=== PATIENT | female | born 1985 ===

== ENCOUNTER 2016-07-10 10:18 | Emergency (ER) | payer MEDICAID, OTHER ==
[2016-07-10 10:57] VITALS: BP 115/72
--- NOTE | 2016-07-10 12:10 | UC ---
"Skin Complaint HPI - HPI Summary HPI Summary: pt presents with c/o bilateral lower lid erythematous, itchy, tender, burning dry skin X 1 week. Pt denies injury, or contact with caustic substance to skin. - History of Current Complaint Chief Complaint: UCRespiratory Time Seen by Provider: 07/10/16 11:51 Stated Complaint: LOWER EYELID REDNESS Hx Obtained From: Patient Hx Last Menstrual Period: 06/22/16 ?: No Onset/Duration: Gradual Onset, Lasting Days - 7 Skin Exposure Onset/Duration: Days Ago - 7 Timing: Constant Onset Severity: Mild Location: Discrete - bilateral lower lids. Character: Swelling, Pruritus, Redness, Painful Aggravating: Touch Alleviating: Nothing Associated Signs & Symptoms: Positive: Tenderness - Allergy/Home Medications Allergies/Adverse Reactions: Allergies Allergy/AdvReac Type Severity Reaction Status Date / Time No Known Allergies Allergy Verified 07/10/16 10:49 Home Medications: Home Medications Cyclobenzaprine TAB* [Flexeril 10 MG TAB*] 10 mg PO Q4H PRN 07/10/16 [History Confirmed 07/10/16] PARoxetine HCL TAB* [Paxil TAB*] 40 mg PO DAILY 07/10/16 [History Confirmed 04/23] Review of Systems Constitutional: Negative Skin: Other - erythematous, tender dry, itchy smal patch bialteral lower eyelids Eyes: Negative ENT: Negative Respiratory: Negative Cardiovascular: Negative Gastrointestinal: Negative Genitourinary: Negative Motor: Negative Neurovascular: Negative Musculoskeletal: Negative Neurological: Negative Psychological: Negative All Other Systems Reviewed And Are Negative: Yes PMH/Surg Hx/FS Hx/Imm Hx Previously Healthy: Yes - Surgical History Surgical History: Yes Surgery Procedure, Year, and Place: rt knee surgery, cholecystectomy. tubal ligation - Family History Known Family History: Positive: Other - denies FMH of rash - Social History Alcohol Use: None Substance Use Type: None Smoking Status (MU): Never Smoked Tobacco Physical Exam Triage Information Reviewed: Yes Appearance: Well-Appearing Vital Signs: Initial Vital Signs Temp 98.7 F 07/10/16 10:53 Pulse 77 07/10/16 10:53 Resp 16 07/10/16 10:53 BP 115/72 07/10/16 10:53 Pulse Ox 100 07/10/16 10:53 Vital Signs Reviewed: Yes Eye Exam: Other - bialteral lower lids, erythematous, dry, slightly swollen, area ~ 1 cm below bilateral eyes, blanchable Eyes: Positive: Conjunctiva Clear ENT Exam: Normal Neck exam: Normal Respiratory Exam: Normal Cardiovascular Exam: Normal Musculoskeletal Exam: Normal Neurological Exam: Normal Psychological Exam: Normal Skin Exam: Other - bilateral lower lids, erythematous, dry, slightly swollen, area ~ 1 cm below bilateral eyes, blanchable Skin: Positive: rashes Course/Dx - Differential Diagnoses - Skin Complaint Differential Diagnoses: Eczema - Diagnoses Provider Diagnoses: Dermatitis Discharge - Discharge Plan Condition: Stable Disposition: HOME Prescriptions: Cetirizine HCl [Zyrtec Allergy 10 MG TAB] 10 mg PO DAILY #10 tab predniSONE TAB* [Deltasone TAB*] 30 mg PO DAILY #9 tab Patient Education Materials: Dermatitis (ED) Referrals: Kentrell ESPINAL,Paul Hooper [Primary Care Provider] - As Soon As Possible Additional Instructions: Please also use OTC Eye Itch Relief | ZADITOR Eye Drops. Use as directed."
== END 2016-07-10 12:24 | disposition home or self-care (01) ==
LOC: UCCORT 10:18
DX: H01.9 Unspecified inflammation of eyelid (principal)
CPT/HCPCS: 99202; G0463

== ENCOUNTER 2016-07-15 11:02 | Emergency (ER) | payer OTHER ==
[2016-07-15 11:13] VITALS: BP 110/69
--- NOTE | 2016-07-15 11:35 | UC ---
Eye Complaint HPI - HPI Summary HPI Summary: Patient was seen 5 days ago for itchy watery eyes and given prednisone and zaditor eye drops , she now has purulent drainage out of the eyes in the morning. - History of Current Complaint Chief Complaint: UCEye Stated Complaint: EYE ISSUE Time Seen by Provider: 07/15/16 11:25 Hx Last Menstrual Period: 06/21/16 ?: No Onset/Duration: Sudden Onset, Lasting Days Timing: Constant Severity Initially: Moderate Severity Currently: Moderate Location of Injury: Eye Lid (lower), Eye Lid (upper), Sclera Associated Signs And Symptoms: Positive: Drainage (Purulent) - Allergies/Home Medications Allergies/Adverse Reactions: Allergies Allergy/AdvReac Type Severity Reaction Status Date / Time No Known Allergies Allergy Verified 07/15/16 11:16 PMH/Surg Hx/FS Hx/Imm Hx Previously Healthy: Yes - Surgical History Surgical History: Yes Surgery Procedure, Year, and Place: rt knee surgery, cholecystectomy. tubal ligation - Family History Known Family History: Positive: Other - denies FMH of rash - Social History Alcohol Use: None Substance Use Type: None Smoking Status (MU): Never Smoked Tobacco Review of Systems Constitutional: Negative Skin: Negative Eyes: Drainage, Eye Redness ENT: Negative Respiratory: Negative Cardiovascular: Negative Gastrointestinal: Negative Genitourinary: Negative Motor: Negative Neurovascular: Negative Musculoskeletal: Negative Neurological: Negative Psychological: Negative All Other Systems Reviewed And Are Negative: Yes Physical Exam Triage Information Reviewed: Yes Appearance: Well-Appearing, Well-Nourished, Pain Distress Vital Signs: Initial Vital Signs Temp 98.9 F 07/15/16 11:10 Pulse 80 07/15/16 11:10 Resp 14 07/15/16 11:10 BP 110/69 07/15/16 11:10 Pulse Ox 100 07/15/16 11:10 Vital Signs Reviewed: Yes Eye Exam: Normal Eyes: Positive: Conjunctiva Inflamed, Discharge ENT Exam: Normal ENT: Positive: Hearing grossly normal, Pharynx normal, TMs normal Dental Exam: Normal Neck exam: Normal Neck: Positive: Supple, Nontender, No Lymphadenopathy Respiratory Exam: Normal Respiratory: Positive: Chest non-tender, Lungs clear, Normal breath sounds Cardiovascular Exam: Normal Cardiovascular: Positive: RRR, No Murmur, Pulses Normal Abdominal Exam: Normal Abdomen Description: Positive: Nontender, No Organomegaly, Soft Bowel Sounds: Positive: Present Musculoskeletal Exam: Normal Musculoskeletal: Positive: Strength Intact, ROM Intact, No Edema Neurological Exam: Normal Neurological: Positive: Alert, Muscle Tone Normal Psychological Exam: Normal Skin Exam: Normal Eye Complaint Course/Dx - Course Course Of Treatment: hx obtained, exam performed, meds reviewed, - Differential Dx/Diagnosis Differential Diagnosis/HQI/PQRI: Conjunctivitis, Foreign Body, Penetrating Injury, Periorbital Cellulitis, Orbital Cellulitis Provider Diagnoses: conjunctivitis, bilateral Discharge - Discharge Plan Condition: Stable Disposition: HOME Patient Education Materials: Conjunctivitis (ED) Referrals: Kentrell ESPINAL,Paul Hooper [Primary Care Provider] - Additional Instructions: Use the medication tree times a day for the past 5 days. If this does not provided relief I recommend following up with your eye doctor.
[2016-07-15] MEDS ORDERED: Erythromycin OPTH OINT* APPLIC OINT BOTH EYES SCH (14:00)
== END 2016-07-15 11:41 | disposition home or self-care (01) ==
LOC: UCCORT 11:02
DX: H10.33 Unspecified acute conjunctivitis, bilateral (principal); Z90.49 Acquired absence of other specified parts of digestive tract
CPT/HCPCS: 99212; G0463